=== PATIENT | female | born 1970 | race Caucasian/White ===

== ENCOUNTER 2019-01-22 07:22 | Day surgery (SDC) | payer MEDICAID, OTHER ==
[2019-01-22] MEDS ORDERED: methylPREDNISolone SOD SUCC 125 MG/2 ML VIAL ONE ×2 (08:20→08:48)
[2019-01-22] MEDS ORDERED: SEVOFLURANE 250 ML LIQUID IH ONE (08:48)
[2019-01-22] MEDS ORDERED: ROCURONIUM BROMIDE 10 MG/ML 5ML VIAL ONE (08:48)
[2019-01-22] MEDS ORDERED: SODIUM CHLORIDE IRRIG SOLUTION 3,000 ML IRRIG.SOLN IR ONE (08:48)
[2019-01-22] MEDS ORDERED: DEXAMETHASONE SODIUM PHOSPHATE 10 MG/ML VIAL ONE (08:48)
[2019-01-22] MEDS ORDERED: MIDAZOLAM HCL 2 MG/2 ML VIAL ONE (08:48)
[2019-01-22] MEDS ORDERED: LACTATED RINGERS 1,000 ML IV.SOLN IV ONE (08:48)
[2019-01-22] MEDS ORDERED: fentaNYL CITRATE/PF 100 MCG/2 ML INJ. ONE ×2 (08:48→11:01)
[2019-01-22] MEDS ORDERED: ONDANSETRON HCL/PF 4 MG/ 2ML VIAL ONE (08:48)
[2019-01-22] MEDS ORDERED: hydrALAZINE HCL 20 MG/1 ML ONE (08:48)
[2019-01-22] MEDS ORDERED: FAMOTIDINE 20 MG/2 ML VIAL IV ONE (08:48)
[2019-01-22] MEDS ORDERED: ceFAZolin SODIUM 1 GM VIAL ONE (08:48)
[2019-01-22] MEDS ORDERED: LIDOCAINE HCL 2% PF 100MG/5ML VIAL IJ ONE (08:48)
[2019-01-22] MEDS ORDERED: BUPIV. HCL 0.25% (2.5MG/ML)/EPI. (1:200,000) PF 10 ML VIAL IM ONE (08:48)
[2019-01-22] MEDS ORDERED: PROPOFOL 200 MG/20 ML VIAL IV ONE (08:48)
[2019-01-22] MEDS ORDERED: HYDROmorphone HCL/PF 1 MG/ML VIAL ONE ×2 (08:48→10:53)
[2019-01-22] MEDS ORDERED: SCOPOLAMINE HYDROBROMIDE 1.5MG/72HR PATCH TD ONE (08:48)
[2019-01-22] MEDS ORDERED: LIDOCAINE HCL 1% PF 300MG/30ML VIAL ONE (08:48)
[2019-01-22] MEDS ORDERED: SUGAMMADEX SODIUM 200 MG/2 ML VIAL IV ONE (08:48)
--- NOTE | 2019-01-26 14:48 | Operative Note ---
PREOPERATIVE DIAGNOSIS: 1. Morbid obesity. 2. Arthritis. 3. Hyperlipidemia. 4. Hypertension. 5. Gastroesophageal reflux disease. POSTOPERATIVE DIAGNOSIS: 1. Morbid obesity. 2. Arthritis. 3. Hyperlipidemia. 4. Hypertension. 5. Gastroesophageal reflux disease. PROCEDURES PERFORMED: 1. Laparoscopic vertical sleeve gastrectomy. 2. Upper gastrointestinal endoscopy. SURGEON: Adrian Burkett M.D. INDICATIONS FOR PROCEDURE: Ms. Lugo is a 48-year-old female who presented with features of morbid obesity with the above-listed comorbidities. She was noted to have a weight of 324 pounds with a BMI of 53.1. The patient was advised laparoscopic vertical sleeve gastrectomy and possible hiatal hernia repair. The patient showed understanding and agreed to proceed. DESCRIPTION OF PROCEDURE: After explaining to the patient in detail and informed consent was obtained, the patient was identified in the preoperative holding area. The patient was transferred to the operating room and was placed in supine position. Sequential compressive devices were placed for DVT prophylaxis. Preoperative antibiotics were given. After induction of anesthesia, the abdomen was prepped and draped in a sterile fashion. Through a left upper quadrant 1-cm incision, and using Optiview technique, the peritoneal cavity was entered and pneumoperitoneum was created. Thereafter, under direct vision, another 5-mm trocar was placed in the left midabdomen and another 15-mm trocar was placed in the right midabdomen. Through a 1-cm incision in the right subcostal region, another 5-mm trocar was placed. Through a 1-cm incision in the epigastrium, a Jignesh retractor was introduced and the left lobe of the liver was retracted. On initial inspection, the patient was noted to have no evidence of hiatal hernia. I took down the gastroepiploic vessels using a LigaSure. This was continued superiorly. The short gastric vessels were taken down. The gastrophrenic ligament was divided and the Angle of His was mobilized. The posterior attachments of the stomach on the pancreas were released. Distally, the gastroepiploic vessels were taken down up to about 4 cm proximal to the pylorus. At this point, a #38 Romanian Hurst Bougie was introduced into the stomach and was placed along the lesser curve. The stomach was then divided in a vertical fashion with multiple Endo FAROOQ Covidien Black Load Staplers. The first firing was directed outwards towards the greater curvature. Subsequent firings were directed towards the Angle of His to create a loose sleeve around the #38 Romanian bougie. The bougie was then removed and an upper GI endoscopy was performed at this point. The scope was introduced into the esophagus and was gradually advanced into the stomach. The GE junction appeared normal. The sleeve size appeared normal. No evidence of any active bleeding was noted. The stomach was insufflated with air and irrigation of fluid along the staple line revealed no evidence of air leak. The stomach was then suctioned out and the scope was removed. Absolute hemostasis was ensured. Thorough saline irrigation was given. The Jignesh retractor was removed. Approximately 10 mL of a lidocaine- Marcaine mix was instilled under the left hemidiaphragm. The sleeve gastrectomy specimen was removed. The abdomen was then deflated. The incisions were closed with 4-0 Monocryl. Dermabond was applied. Approximately 10 mL of a lidocaine- Marcaine mix was injected into all the incisions. The patient was awakened from anesthesia and was transferred to the recovery room in stable condition. ESTIMATED BLOOD LOSS: Approximately 10 mL. CONDITION OF THE PATIENT: Stable. FLUIDS GIVEN: Per Anesthesia note. SPECIMEN(S) SENT: Sleeve gastrectomy specimen. COMPLICATIONS: None. ANESTHESIA: General. Adrian Burkett M.D. SARAY/humble (Please copy SA provider when applicable) Job #[id number] KEELY
== END 2019-01-22 12:04 | disposition other institution (70) ==
LOC: OPSURG 07:22
PROVIDERS: ATTEND Surgery
DX: E66.01 Morbid (severe) obesity due to excess calories (principal); K21.9 Gastro-esophageal reflux disease without esophagitis; E78.5 Hyperlipidemia, unspecified; I10 Essential (primary) hypertension; Z68.43 Body mass index [BMI] 50.0-59.9, adult
CPT/HCPCS: 43235; 43775; J0360; J0690; J1170; J2001; J2250; J2405; J2704; J2930; J3010; A9270-GY; J7120

== ENCOUNTER 2019-01-22 12:05 | Inpatient (IN) | payer MEDICAID, OTHER ==
[2019-01-22] MEDS ORDERED: 0.9 % SODIUM CHLORIDE 1,000 ML IV ONE ×2 (13:16)
[2019-01-22] MEDS ORDERED: ACETAMINOPHEN 1,000 MG/100 ML INJ IV PRN (13:33)
[2019-01-22] MEDS ORDERED: MORPHINE SULFATE 2 MG/ML VIAL ONE (13:33)
[2019-01-22] MEDS ORDERED: PROMETHAZINE HCL 25 MG in 0.9 % SODIUM CHLORIDE 50 ML IV PRN (13:33)
[2019-01-22] MEDS ORDERED: INSULIN REGULAR, HUMAN 100 UNIT/ML 10ML VIAL ONE (16:45)
[2019-01-22] MEDS: ceFAZolin SODIUM 1 GM in 0.9 % SODIUM CHLORIDE 50 ML IV SCH (18:45)
[2019-01-22] MEDS ORDERED: IPRATROPIUM/ALBUTEROL SULFATE 3 ML AMPUL.NEB NEB PRN (20:43)
[2019-01-22] MEDS: 0.9 % SODIUM CHLORIDE 1,000 ML IV SCH ×2 (21:01→23:19)
[2019-01-22] MEDS: ONDANSETRON HCL/PF 4 MG/ 2ML VIAL IVP PRN (21:02)
[2019-01-22] MEDS: FAMOTIDINE 20 MG/2 ML VIAL IV SCH (21:04)
[2019-01-22] MEDS: MORPHINE SULFATE 2 MG/ML VIAL IV PRN (21:06)
[2019-01-22] MEDS: INSULIN REGULAR, HUMAN 100 UNIT/ML 10ML VIAL SQ SCH (21:13)
[2019-01-23] MEDS: ceFAZolin SODIUM 1 GM in 0.9 % SODIUM CHLORIDE 50 ML IV SCH (03:09)
[2019-01-23] MEDS: 0.9 % SODIUM CHLORIDE 1,000 ML IV SCH ×2 (04:17→17:48)
[2019-01-23] MEDS: HYDROcodone-ACETAMIN 7.5-325/15ML SOLN UD CUP PO PRN ×4 (04:59→23:26)
[2019-01-23 06:47] LABS: eGFR (Non-African) > 60
[2019-01-23 06:49] LABS: BASOPHILS % 0.4 % (0.0-1.5)
--- NOTE | 2019-01-23 07:47 | Inpatient Progress Note ---
Subjective - Required Recertification Statement I anticipate X number of days because-include discharge plan: 1 - Review of Systems Events since last encounter: Patient is lying in bed this morning awake. She states that she did not get much sleep. She was having a lot of discomfort last night. She states that pain is improving. She has had some nausea and moderate discomfort from the gas. She denies any chest pain or shortness of breath. She has been up ambulating in the halls and using incentive spirometer while awake. General: Denies: Chills, Night Sweats HEENT: Denies: Head Aches, Dysphasia Pulmonary: Denies: Dyspnea Cardiovascular: Denies: Chest Pain, Palpitations, Light Headedness Gastrointestinal: Nausea, Abdominal Pain (s/p LSG). Denies: Vomiting Genitourinary: Denies: Dysuria Musculoskeletal: Denies: Back Pain Neurological: Weakness Objective - Exam Vitals and I&O: Vital Signs Temp 97.7 F 01/23/19 05:44 Pulse 73 01/23/19 05:44 Resp 20 01/23/19 05:44 BP 146/85 01/23/19 05:44 Pulse Ox 95 01/23/19 05:44 Intake & Output 01/22/19 01/22/19 01/23/19 11:59 23:59 11:59 Intake Total 1080 Output Total 500 1375 Balance -500 -295 Intake: IV 1050 Left Antecubital 1050 Oral 30 Output: Urine 500 1375 Other: Voiding Method Toilet Toilet # Voids 3 General: Alert, Oriented to Person, Oriented to Place, Oriented to Time, Cooperative, Mild distress, Morbidly Obese HEENT: Atraumatic, PERRLA, Mouth Mucous membr. moist/[place], Nose Mucous membr. moist/[place] Neck: Supple, +2 carotid pulse wo bruit Lungs: Clear to auscultation, Normal air movement, Speaks full Sentences Cardiovascular: Regular rate, Normal S1, Normal S2 Abdomen: Soft, Decreased Bowel Sounds Extremities: No edema, Normal pulses, No tenderness/swelling Skin: Normal, [place], Warm, Dry, Other (incisions intact without redness/erythema- skin adhesives intact) Neurological: Normal speech, Strength Equal Bilat, Generalized Weakness Psych/Mental Status: Mental status NL, Mood NL, Appropriate Affect, Intact Judgment - Results Results: Laboratory Results WBC 10.10 K/ul (4.00-12.00) 01/23/19 05:00 RBC 4.62 M/ul (3.90-5.20) 01/23/19 05:00 Hgb 13.3 g/dL (11.5-16.0) 01/23/19 05:00 Hct 40.1 % (34.5-46.5) 01/23/19 05:00 MCV 87.0 fl (80.0-100.0) 01/23/19 05:00 MCH 28.7 pg (28.0-34.0) 01/23/19 05:00 MCHC 33.2 g/dL (30.0-36.0) 01/23/19 05:00 RDW 13.1 % (11.3-14.3) 01/23/19 05:00 Plt Count 218 K/mm3 (130-400) 01/23/19 05:00 Neut % (Auto) 69.7 % (39.0-79.0) 01/23/19 05:00 Lymph % (Auto) 21.6 % (16.0-50.0) 01/23/19 05:00 [place] % (Auto) 7.6 % (0.0-11.0) 01/23/19 05:00 Eos % (Auto) 0.7 % (0.0-6.8) 01/23/19 05:00 Baso % (Auto) 0.4 % (0.0-1.5) 01/23/19 05:00 Neut # (Auto) 7.0 # k/uL (1.4-7.7) 01/23/19 05:00 Lymph # (Auto) 2.2 # k/uL (0.6-4.0) 01/23/19 05:00 [place] # (Auto) 0.8 # k/uL (0.0-0.9) 01/23/19 05:00 Eos # (Auto) 0.1 # k/uL (0.0-0.6) 01/23/19 05:00 Baso # (Auto) 0.0 # k/uL (0.0-0.5) 01/23/19 05:00 Sodium 138 mmol/L (137-145) 01/23/19 05:00 Potassium 3.3 mmol/L (3.5-5.1) L 01/23/19 05:00 Chloride 102 mmol/L (98-107) 01/23/19 05:00 Carbon Dioxide 25 mmol/L (22-30) 01/23/19 05:00 Anion Gap 14.3 01/23/19 05:00 BUN 6 mg/dL (7-17) L 01/23/19 05:00 Creatinine 0.47 mg/dL (0.52-1.04) L 01/23/19 05:00 Est GFR ( Amer) > 60 (60-) 01/23/19 05:00 Est GFR (Non-Af Amer) > 60 (60-) 01/23/19 05:00 Glucose 134 mg/dL (74-106) H 01/23/19 05:00 Calcium 8.3 mg/dL (8.4-10.2) L 01/23/19 05:00 Total Bilirubin 0.2 mg/dL (0.2-1.3) 01/23/19 05:00 AST 58 U/L (15-46) H 01/23/19 05:00 ALT 56 U/L (13-69) 01/23/19 05:00 Alkaline Phosphatase 65 U/L (38-126) 01/23/19 05:00 Total Protein 6.4 g/dL (6.3-8.2) 01/23/19 05:00 Albumin 3.7 g/dL (3.5-5.0) 01/23/19 05:00 Assessment/Plan - Assessment/Plan (1) Hypertension Status: Acute Current Visit: Yes Qualifiers: Hypertension type: essential hypertension Qualified Code(s): I10 - Essential (primary) hypertension Assessment: Blood pressures are elevated to 150s-160s Plan: Will start blood pressure medications; lisinopril, amlodipine and clonidine (2) Morbid obesity due to excess calories Status: Acute Current Visit: Yes Assessment: Patient tolerating ice chips and water; some nausea Plan: Will advance diet to clear liquids today (3) Nausea and vomiting Status: Acute Current Visit: Yes Assessment: Patient still experiencing some nause- no vomiting Plan: Will continue with IV Zofran and phenergan; IV pepcid BID (4) SERA on CPAP Status: Acute Current Visit: Yes Assessment: Patient does well with CPAP Plan: Will continue with CPAP (5) Rheumatoid arthritis Status: Acute Current Visit: Yes Assessment: Patient states that she is doing well with her RA Plan: Stable at this time (6) Status post gastric surgery Status: Acute Current Visit: Yes Assessment: Patient experiencing nausea; has been ambulating, wearing SCDs while in bed, using incentive spirometry, patient receiving lovenox to prevent DVT Plan: Patient getting IV fluids for hydration, IV pain meds, and IV antiemetics. Lovenox and SCDs to help prevent DVTs, IS and frequent ambulation will be implemented. Patient eating ice chips and will advance diet to clear liquids as tolerated once nausea and vomiting is controlled. Will continue with Pepcid IV BID for GI upset (7) Type 2 diabetes mellitus Status: Acute Current Visit: Yes Qualifiers: Diabetes mellitus shelter insulin use: without keno terminal operator use Diabetes mellitus complication status: with hyperglycemia Qualified Code(s): E11.65 - Type 2 diabetes mellitus with hyperglycemia Assessment: Blood sugars running 140-200; no sx's of hypo/hyperglycemia Plan: Will continue on SSI
[2019-01-23] MEDS: FAMOTIDINE 20 MG/2 ML VIAL IV SCH ×2 (08:55→20:23)
[2019-01-23] MEDS: ENOXAPARIN SODIUM 40 MG/0.4 ML DISP.SYRIN SQ SCH (08:58)
[2019-01-23] MEDS: POTASSIUM CHLORIDE 20 MEQ TABLET.ER PO SCH (08:58)
[2019-01-23] MEDS: INSULIN REGULAR, HUMAN 100 UNIT/ML 10ML VIAL SQ SCH ×4 (08:59→20:27)
[2019-01-23] MEDS ORDERED: KETOROLAC TROMETHAMINE 30 MG/1ML VIAL IV PRN (11:00)
[2019-01-23] MEDS: MORPHINE SULFATE 2 MG/ML VIAL IV PRN (11:55)
--- NOTE | 2019-01-23 13:30 | History and Physical Report ---
History of Present Illnes - History of Present Illness Reason for Visit: S/P LSG History of Present Illness: Patient is a 48-year-old female who has tried multiple diets and exercise programs with no success. She has always struggled with her weight which has worsened since having children. Patient and surgeon decided to proceed with gastric sleeve procedure. Procedure went well- She will be admitted and monitored s/p surgical intervention. Patient has been on a liquid diet prior to surgery so she is a risk of dehydration s/p surgery. She will be admitted for IV hydration to help hydrate patient until she is able to tolerate a sufficient oral intake, will treat pain with IV medication until patient is able to tolerate oral meds, IV antiemetics to help reduce episodes of nausea and/or vomiting. Patient will be monitored closely using telemetry s/p surgery d/t HTN. Will encourage incentive spirometer, patient will use CPAP for SERA and will place patient on SSI due to elevated blood sugars from DM. Patient appears very uncomfortable s/p surgery. 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: Migraine Gastrointestinal: GERD, Other (vit D def) Psych: Depression Musculoskeletal: Chronic low back pain, Other (chronic joint pain knees, hips, feet, ankles) Rheumatologic: Gout, Rheumatoid arthritis Endocrine: Diabetes, obesity Grav: 4 Para: 4 Ab: 0 - Past Surgical History Past Surgical History: Appendectomy, Cholecystectomy, (x2), Hysterectomy - Past Family History Mother Family History: DM, Hyperlipidemia Father Family History: Hypertension - Past Social History Smoke: No Alcohol: None Drugs: None Lives: With Family - Health Maintenance Health Maintenance: Cholesterol, Pap Smear, Mammogram Influenza Vaccine: No Pneumonia Vaccine: No Resuscitation Status: Resusciation Status Resuscitation Status Full Code Review of Systems - Review of Systems Constitutional: negative: Fever, Chills Eyes: negative: pain, vision change ENT: negative: Ear Pain, Nose Pain, Throat Pain Respiratory: SOB with Excertion Cardiovascular: negative: Chest Pain, Edema Gastrointestinal: Nausea, Vomiting, Abdominal Pain (s/p LSG) Genitourinary: negative: Dysuria Musculoskeletal: Back Pain, Leg Pain (chronic) Skin: negative: Rash Neurological: Weakness - Medications/Allergies Allergies/Adverse Reactions: Allergies Allergy/AdvReac Type Severity Reaction Status Date / Time No Known Allergies Allergy Unverified 01/22/19 12:07 Current Inpatient Medications: Current Inpatient Medications Acetaminophen (Ofirmev) 1,000 mg IV Q6H PRN PRN Reason: Mild Pain (Score 1-4) Stop: 01/23/19 23:59 Last Admin: 01/23/19 00:38 Dose: 1,000 mg Hydrocodone Bitart/Acetaminophen (Hycet 7.5-325mg/15 Ml Ud Cup) 15 ml PO Q4H PRN PRN Reason: Moderate Pain (Score 5-7) Stop: 01/23/19 23:59 Last Admin: 01/23/19 10:22 Dose: 15 ml Albuterol/Ipratropium (Duoneb) 3 ml NEB Q4 PRN PRN Reason: Wheezing Stop: 02/21/19 20:42 Enoxaparin Sodium (Lovenox) 40 mg SQ DAILY [facility] Stop: 02/06/19 09:59 Last Admin: 01/23/19 08:58 Dose: 40 mg Famotidine (Pepcid) 20 mg IV BID [facility] Last Admin: 01/23/19 08:55 Dose: 20 mg Sodium Chloride (Normal Saline) 1,000 mls @ 150 mls/hr IV Q8H [facility] Last Admin: 01/23/19 04:17 Dose: 150 mls/hr Promethazine HCl 25 mg/ Sodium (Chloride) 51 mls @ 204 mls/hr IV Q6H PRN PRN Reason: Nausea / Vomiting Stop: 01/23/19 23:59 Last Admin: 01/23/19 13:14 Dose: 204 mls/hr Insulin Human Regular (Novolin R) 0 unit SQ [facility]MQID [facility]; Protocol Stop: 02/21/19 20:59 Last Admin: 01/23/19 13:26 Dose: Not Given Ketorolac Tromethamine (Toradol) 30 mg IV Q6H PRN PRN Reason: pain Stop: 01/28/19 10:59 Miscellaneous (Chem Sticks) 1 each MC ACHS [facility] Stop: 02/21/19 20:59 Last Admin: 01/23/19 11:51 Dose: 1 each Morphine Sulfate () 2 mg IV Q2H PRN PRN Reason: Severe Pain (Score 8-10) Last Admin: 01/23/19 11:55 Dose: 2 mg Ondansetron HCl (Zofran) 4 mg IVP Q6H PRN PRN Reason: Nausea / Vomiting Stop: 01/23/19 23:59 Last Admin: 01/22/19 21:02 Dose: 4 mg Potassium Chloride (Klor-Con M20) 20 meq PO DAILY PADMINI Stop: 02/22/19 08:59 Last Admin: 01/23/19 08:58 Dose: 20 meq Exam - Exam Vital Signs: Vital Signs (72 hours) 01/22/19 01/22/19 01/22/19 20:43 21:40 22:00 Temperature 97.4 F L Pulse Rate [ 84 84 Right] Respiratory 18 18 Rate Blood Pressure 157/88 [Right Arm] O2 Sat by Pulse 96 96 Oximetry 01/23/19 01/23/19 01/23/19 02:00 05:10 05:21 Temperature 98.0 F Pulse Rate [ 84 Right] Respiratory 20 20 Rate Blood Pressure 157/80 [Right Arm] O2 Sat by Pulse 96 96 Oximetry 01/23/19 01/23/19 01/23/19 05:44 09:04 10:00 Temperature 97.7 F 98.7 F Pulse Rate [ 73 71 Right] Respiratory 20 18 Rate Blood Pressure 146/85 163/85 [Right Arm] O2 Sat by Pulse 95 94 94 Oximetry 01/23/19 13:24 Temperature 97.3 F L Pulse Rate [ 55 L Right] Respiratory 18 Rate Blood Pressure 153/74 [Right Arm] O2 Sat by Pulse 95 Oximetry General: Alert, Oriented to Person, Oriented to Place, Oriented to Time, Cooperative, Moderate distress, Morbidly Obese HEENT: Atraumatic, PERRLA, Mouth Mucous membr. moist/[place], Nose Mucous membr. moist/[place] Neck: Normal Range of Motion Carotids: No bruit Lungs: Clear to auscultation, Normal air movement Cardiovascular: Regular rate, Normal S1, Normal S2 Peripheral Edema: None Peripheral Pulses: 2+ Abdomen: Soft, Decreased Bowel Sounds Integumentary: Warm, Dry, Pale, Other (incisions x5 without redness/erythema- skin adhesive intact) Extremities: No edema, Normal pulses, No tenderness/swelling Neurological: Normal speech, Strength Equal Bilat, Generalized Weakness Psych/Mental Status: Mental status NL, Mood NL, Appropriate Affect - Laboratory Results Laboratory Results: Laboratory Results 08/23/19 08/23/19 05:00 05:00 WBC 10.10 RBC 4.62 Hgb 13.3 Hct 40.1 MCV 87.0 MCH 28.7 MCHC 33.2 RDW 13.1 Plt Count 218 Neut % (Auto) 69.7 Lymph % (Auto) 21.6 [place] % (Auto) 7.6 Eos % (Auto) 0.7 Baso % (Auto) 0.4 Neut # (Auto) 7.0 Lymph # (Auto) 2.2 [place] # (Auto) 0.8 Eos # (Auto) 0.1 Baso # (Auto) 0.0 Sodium 138 Potassium 3.3 L Chloride 102 Carbon Dioxide 25 Anion Gap 14.3 BUN 6 L Creatinine 0.47 L Est GFR ( Amer) > 60 Est GFR (Non-Af Amer) > 60 Glucose 134 H Calcium 8.3 L Total Bilirubin 0.2 AST 58 H ALT 56 Alkaline Phosphatase 65 Total Protein 6.4 Albumin 3.7 Assessment/Plan - Assessment/Plan (1) Status post gastric surgery Status: Acute Current Visit: Yes Plan: Plan to admit for IV hydration, IV pain meds, and IV antiemetics. Lovenox and SCDs to help prevent DVTs, IS and frequent ambulation will be implemented. Start ice chips and advance diet as tolerated. (2) Morbid obesity due to excess calories Status: Acute Current Visit: Yes Plan: Patient is s/p gastric sleeve. We will assist patient with implementing gastric sleeve diet protocol starting with ice chips and clear liquids and advancing as tolerated. (3) SERA on CPAP Status: Acute Current Visit: Yes Plan: Patient will use CPAP (4) Hypertension Status: Acute Current Visit: Yes Qualifiers: Hypertension type: essential hypertension Qualified Code(s): I10 - Essential (primary) hypertension Plan: Will hold medication until able to tolerate PO- will monitor blood pressure (5) Type 2 diabetes mellitus Status: Acute Current Visit: Yes Qualifiers: Diabetes mellitus mcc insulin use: without mcc use Diabetes mellitus complication status: with hyperglycemia Qualified Code(s): E11.65 - Type 2 diabetes mellitus with hyperglycemia Plan: Will check blood sugars AC & HS; will implement sliding scale (6) Rheumatoid arthritis Status: Acute Current Visit: Yes Plan: Patient has held RA meds for surgery; she will follow up with [facility] in a couple of weeks and get Aczar injection (7) Nausea and vomiting Status: Acute Current Visit: Yes Plan: Pepcid IV BID ordered; IV antiemetics, and IVFs VTE Assessment - RISK FACTOR SCORE VTE RISK FACTOR SCORES: AGE 40-60 YEARS, OBESITY, MAJOR SURGERY/ANESTHESIA TIME > 1 HOUR - RISK VTE HIGH RISK: SCORE OF 3-4 (RISK PROXIMAL DVT 4-8%) PROPHYLAXIS NEEDED (Lovenox daily, SCDs in bed, incentive spirometer, ambulation)
[2019-01-23] MEDS: ONDANSETRON HCL/PF 4 MG/ 2ML VIAL IVP PRN ×2 (15:56→23:26)
[2019-01-23] MEDS: amLODIPine BESYLATE 5 MG TABLET PO SCH (17:49)
[2019-01-23] MEDS: cloNIDine HCL 0.1 MG TABLET PO SCH (20:30)
[2019-01-24] MEDS ORDERED: HYDROcodone-ACETAMIN 7.5-325/15ML SOLN UD CUP PO PRN (00:12)
[2019-01-24] MEDS ORDERED: PROMETHAZINE HCL 25 MG in 0.9 % SODIUM CHLORIDE 50 ML IV PRN (00:13)
[2019-01-24] MEDS ORDERED: ONDANSETRON HCL/PF 4 MG/ 2ML VIAL IVP PRN (00:13)
[2019-01-24] MEDS: 0.9 % SODIUM CHLORIDE 1,000 ML IV SCH ×2 (02:19→08:36)
--- NOTE | 2019-01-24 07:02 | Discharge Summary ---
Discharge Summary - Discharge [facility] Admission Date: 01/22/19 Discharge Date: 01/24/19 Discharge To: Home History of Present Illness: Patient is a 48-year-old female who has tried multiple diets and exercise programs with no success. She has always struggled with her weight which has worsened since having children. Patient and surgeon decided to proceed with gastric sleeve procedure. Procedure went well- She will be admitted and monitored s/p surgical intervention. Patient has been on a liquid diet prior to surgery so she is a risk of dehydration s/p surgery. She will be admitted for IV hydration to help hydrate patient until she is able to tolerate a sufficient oral intake, will treat pain with IV medication until patient is able to tolerate oral meds, IV antiemetics to help reduce episodes of nausea and/or vomiting. Patient will be monitored closely using telemetry s/p surgery d/t HTN. Will encourage incentive spirometer, patient will use CPAP for SERA and will place patient on SSI due to elevated blood sugars from DM. Patient appears very uncomfortable s/p surgery. Condition at Discharge: Stable Home Medications: Ambulatory Orders Medication Instructions Recorded Allopurinol [Zyloprim] 300 mg PO DAILY 01/22/19 Buspirone HCl [Buspar] 30 mg PO BID 01/22/19 Cetirizine HCl [Allergy] 10 mg PO DAILY 01/22/19 Clonidine HCl [Catapres] 0.2 mg PO BID 01/22/19 Desvenlafaxine [Desvenlafaxine ER] 100 mg PO DAILY 01/22/19 Duloxetine HCl 60 mg PO BID 01/22/19 Folic Acid 1 mg PO DAILY 01/22/19 Furosemide 20 mg PO BID 01/22/19 Gabapentin [Neurontin] 1,200 mg PO HS 01/22/19 Gabapentin [Neurontin] 600 mg PO AM 01/22/19 Lisinopril 40 mg PO DAILY 01/22/19 Metformin HCl 1,000 mg PO BID 01/22/19 Methotrexate [Xatmep] 10 mg PO SAT18 01/22/19 Montelukast Sodium [Singulair] 10 mg PO HS 01/22/19 Naproxen 500 mg PO Q12H PRN 01/22/19 Nebivolol HCl [Bystolic] 40 mg PO DAILY 01/22/19 Pantoprazole Sodium 40 mg PO DAILY 01/22/19 Prednisone 5 mg PO DAILY 01/22/19 amLODIPine BESYLATE [Norvasc] 10 mg PO 0900 01/22/19 Consultations this Visit: None Procedures this Visit: None Allergies/Adverse Reactions: Allergies Allergy/AdvReac Type Severity Reaction Status Date / Time No Known Allergies Allergy Unverified 01/22/19 12:07 Patient Problems: Current Active Problems Problem Status Onset Hypertension Acute Morbid obesity due to excess calories Acute Nausea and vomiting Acute SERA on CPAP Acute Rheumatoid arthritis Acute Status post gastric surgery Acute Type 2 diabetes mellitus Acute Discharge Summary: Patient is a 48-year-old female that underwent the gastric sleeve procedure. She had some issues with nausea and dry heaves but has done well. She has been very cooperative with her care by ambulating frequently, using her incentive spirometer, and wearing her SCDs while in bed. She has been compliant with her diet during hospitalization. She is having minimal discomfort at this time and minimal nausea- she has is passing gas and belching. She is aware of discharge instructions and what she can and cannot do post surgical- she is aware of the strict diet she must follow to decrease discomfort and have success after procedure. She has family support and family will be taking her home- medications written by surgeon given to patient. She feels ready to go home. Hospital Course: Patient received IV pain medications, antiemetics, and IVF and was transitioned to oral. She has been up ambulating and using incentive spirometer. - Final Diagnosis (1) Hypertension Problems: Stable- continue on home meds Right or Left: Right (2) Morbid obesity due to excess calories Problems: Incision without redness or drainage, positive bowel sounds, minimal discomfort, belching and flatus, no extremity pain or edema, LCTA Right or Left: Right (3) Nausea and vomiting Problems: Stable- will send script for phenergan Right or Left: Right (4) SERA on CPAP Problems: Stable- will continue CPAP Right or Left: Right (5) Rheumatoid arthritis Problems: Follow up with [employer] to determine when to restart meds Right or Left: Right (6) Status post gastric surgery Problems: Continue with bariatric sleeve diet- clear liquids today and start full liquids tomorrow; protein shake 80-100 grams protein Right or Left: Right (7) Type 2 diabetes mellitus Problems: Check blood sugar daily-keep log and take to follow up appointment Right or Left: Right
[2019-01-24] MEDS: cloNIDine HCL 0.1 MG TABLET PO SCH (08:08)
[2019-01-24] MEDS: ENOXAPARIN SODIUM 40 MG/0.4 ML DISP.SYRIN SQ SCH (08:09)
[2019-01-24] MEDS: POTASSIUM CHLORIDE 20 MEQ TABLET.ER PO SCH (08:09)
[2019-01-24] MEDS: amLODIPine BESYLATE 5 MG TABLET PO SCH (08:09)
[2019-01-24] MEDS: FAMOTIDINE 20 MG/2 ML VIAL IV SCH (08:10)
[2019-01-24] MEDS: INSULIN REGULAR, HUMAN 100 UNIT/ML 10ML VIAL SQ SCH (08:13)
[2019-01-24 08:45] VITALS: BP 153/79
[2019-01-24] MEDS ORDERED: LISINOPRIL 10 MG TABLET PO SCH (09:00)
== END 2019-01-24 11:35 | disposition home or self-care (01) | DRG 621 ==
LOC: SOUTH 12:05
PROVIDERS: ADMIT Nurse Practitioner Family; ATTEND Nurse Practitioner Family
PROC: 0DB64Z3 Excision of Stomach, Percutaneous Endoscopic Approach, Vertical (ICD-10-PCS; principal; 2019-01-22)
DX: E66.01 Morbid (severe) obesity due to excess calories (principal); G47.33 Obstructive sleep apnea (adult) (pediatric); E11.65 Type 2 diabetes mellitus with hyperglycemia; I10 Essential (primary) hypertension; E78.5 Hyperlipidemia, unspecified; G43.909 Migraine, unspecified, not intractable, without status migrainosus; K21.9 Gastro-esophageal reflux disease without esophagitis; F32.9 Major depressive disorder, single episode, unspecified; M10.9 Gout, unspecified; M06.9 Rheumatoid arthritis, unspecified; M15.8 Other polyosteoarthritis; G89.29 Other chronic pain; M54.5 Low back pain; Z90.49 Acquired absence of other specified parts of digestive tract; Z90.710 Acquired absence of both cervix and uterus; Z79.899 Other long term (current) drug therapy; Z79.84 Long term (current) use of oral hypoglycemic drugs; Z79.52 Long term (current) use of systemic steroids; Z68.43 Body mass index [BMI] 50.0-59.9, adult
CPT/HCPCS: 80053; 85025; 97116; 97161; 97165; 97535; A9270; J0690; J1650; J1815; J1885; J2270; J2405; J2550; J7030; 99024; 99238